=== PATIENT | male | born 1985 | race Hispanic/Latino ===

== ENCOUNTER 2021-06-03 09:10 | Emergency (ER) | payer SELFPAY ==
[~2021-06-03] VITALS: Ht 167.6 cm; Wt 70.0 kg
[2021-06-03] MEDS ORDERED: DILANTIN100 MG PO ×2 (09:36→12:14)
[2021-06-03] MEDS ORDERED: KEPPRA500 M2 PO ×2 (09:36→12:14)
[2021-06-03 10:14] LABS: HEMATOCRIT 46.8 % (39.0-50.0); HEMOGLOBIN 15.6 g/dl (14.0-18.0); IMMATURE GRANULOCYTES 0.1 % (0.0-5.0); MEAN CELL VOLUME 99.4 fL CALC (80.0-100.0); MEAN CORPUSCULAR HGB 33.1 pG CALC (26.0-32.0); MEAN CORPUSCULAR HGB CONC 33.3 g/dL CAL (32.0-36.0); NEUT# 4.53 thou/uL (1.82-7.42); RED BLOOD COUNT 4.71 mill/uL (4.70-6.10); RED CELL DISTRI WIDTH 11.8 % (11.5-15.5)
[2021-06-03 10:31] LABS: ALBUMIN 3.9 g/dL (3.2-5.0); ALKALINE PHOSPHATASE 114 u/l (38-126); ANION GAP 10 (6-22 (CALC)); BILIRUBIN, TOTAL 0.6 mg/dL (0.0-1.4); BUN 22 mg/dL (9-20); BUN/CREATININE RATIO 28 (12-20 (CALC)); CARBON DIOXIDE 27 mmol/l (22-30); CHLORIDE 107 mmol/l (95-108); CREATININE 0.8 mg/dL (0.7-1.3); GFR > 60 ML/MIN (>=60 (CALC)); GFR FOR AFR.AMER. > 60 ML/MIN (>=60 (CALC)); LIPASE 83 u/l (23-300); PHENYTOIN (DILANTIN) < 3 ug/mL (10 - 20); SGOT/AST 264 u/l (17-59); SODIUM 139 mmol/l (137-146); TOTAL PROTEIN 7.3 g/dL (6.3-8.2)
[2021-06-03] MEDS ORDERED: PROTONIX40 MG PO (12:14)
[2021-06-03 12:30] VITALS: BP 130/80
== END 2021-06-03 12:35 | disposition home or self-care (01) | DRG 392 ==
LOC: ED 09:10
DX: R19.7 Diarrhea, unspecified (principal); R10.9 Unspecified abdominal pain; G40.909 Epilepsy, unspecified, not intractable, without status epilepticus; Z20.822 Contact with and (suspected) exposure to COVID-19
CPT/HCPCS: Q9967